=== PATIENT | female | born 1935 | race Two or more races ===

== ENCOUNTER 2021-02-23 19:29 | Inpatient (IN) | payer OTHER ==
[~2021-02-23] VITALS: Ht 162.6 cm; Wt 72.6 kg
[2021-02-23] MEDS ORDERED: XARELTO15 M1 PO (20:22)
[2021-02-23] MEDS ORDERED: LUMIGAN2.5 M1 OP (20:23)
[2021-02-23] MEDS ORDERED: MILLIPRED5 MG PO (20:23)
== END 2021-02-27 13:15 | disposition home or self-care (01) | DRG 603 ==
LOC: ER 19:29 → MEDJ 02-24 07:28
PROVIDERS: ADMIT Internal Medicine; ATTEND Internal Medicine
PROC: 02HV33Z Insertion of Infusion Device into Superior Vena Cava, Percutaneous Approach (ICD-10-PCS; principal; 2021-02-24)
PROC: BQ3MYZZ Magnetic Resonance Imaging (MRI) of Left Foot using Other Contrast (ICD-10-PCS; 2021-02-24)
DX: L03.032 Cellulitis of left toe (principal); L97.529 Non-pressure chronic ulcer of other part of left foot with unspecified severity; B95.61 Methicillin susceptible Staphylococcus aureus infection as the cause of diseases classified elsewhere; I49.9 Cardiac arrhythmia, unspecified; G30.9 Alzheimer's disease, unspecified; F02.80 Dementia in other diseases classified elsewhere, unspecified severity, without behavioral disturbance, psychotic disturbance, mood disturbance, and anxiety; Z20.822 Contact with and (suspected) exposure to COVID-19